=== PATIENT | female | born 1985 | race Caucasian/White ===

== ENCOUNTER → 2016-08-09 | Day surgery (SDC) | payer OTHER ==
[2016-06-30 11:55] VITALS: Ht 160 cm; Wt 91.4 kg
[2016-07-26 12:45] LABS: BASO % 0.3 %; BASO ABS # 0.03 K/uL (0-0.2); COMPLETE YES; EOS % 4.5 %; HEMATOCRIT 39.8 % (37-47); IG% 0.3 %; LYMPH % 25.8 %; LYMPH ABS # 2.36 K/uL (1.2-3.4); MEAN CELL VOLUME 91.3 fL (80-100); MEAN CORPUSCULAR HEMOGLOBIN 30.7 pg (25-34); MEAN CORPUSCULAR HGB CONC 33.7 g/dl (32-36); MEAN PLATELET VOLUME 11.2 fL (7.4-10.4); MONO % 7.8 %; NEUT % 61.3 %; PLATELET COUNT 293 K/uL (130-400); RED BLOOD COUNT 4.36 M/uL (4.2-5.4); WHITE BLOOD COUNT 9.14 K/uL (4.8-10.8)
--- NOTE | 2016-08-04 12:48 | HISTORY & PHYSICAL EXAMINATION ---
DATE OF ADMISSION: 08/09/2016 PREOPERATIVE DIAGNOSIS: Desires permanent surgical sterilization. HISTORY: The patient is a 31-year-old white female, 2, para 2, who desires tubal sterilization. Her kids are older. She was 98% sure at the time of her last section and is now 100% sure. She is using the NuvaRing now but does not like the way it fits in her vagina. She had an IUD but did not feel comfortable with it in. She is ready and interested in laparoscopic tubal sterilization. PAST MEDICAL HISTORY: She has polycystic ovarian syndrome and obesity, but otherwise healthy. Denies thyroid disease, asthma, heart disease, heart murmur, diabetes, kidney or liver problems. SURGICAL HISTORY: Includes sections, hip surgery. FAMILY HISTORY: Significant for mother with a brain tumor and hypertension and father with diabetes mellitus. SOCIAL HISTORY: The patient is currently . She denies smoking. She rarely uses alcohol. CURRENT MEDICATIONS: Include Ativan 0.5 mg as needed, Bentyl 20 mg as needed, Effexor XR 150 mg, and NuvaRing. ALLERGIES: TO BACTRIM AND SULFA DRUGS. PHYSICAL EXAMINATION: GENERAL: This is a well-developed, well-nourished white female in no acute distress. VITAL SIGNS: Weight 201.1 pounds, height 5 feet 3.5 inches, blood pressure 124/76. NECK: Supple without thyromegaly or lymphadenopathy. CHEST: Clear to auscultation bilaterally. CARDIOVASCULAR: Regular rate and rhythm without murmurs, gallops or rubs. BACK: Without costovertebral angle tenderness. EXTREMITIES: Benign. PELVIC: Deferred. REVIEW OF SYSTEMS: Negative. ASSESSMENT: This is a patient who desires laparoscopic tubal sterilization. She declines other long-term reversible forms of control. The risks of surgery were discussed with the patient including the risks of anesthesia, bleeding requiring transfusion, infection, poor wound healing, damage to surrounding structures with need for further surgery, hospitalization or intervention. The other risks of any surgery were discussed including heart attack, blood clot, stroke, . Discussed regret and risks of ectopic. Discussed the possibility of vasectomy and Essure procedure. PLAN: To proceed with laparoscopic tubal sterilization on 08/09/2016.
[~2016-08-09] VITALS: Ht 160 cm; Wt 91.4 kg
[~2016-08-09] MED LIST: ATROPINE SULFATE 0.1 MG/ML 5ML SYR IV PRN; BUPIVACAINE 0.5 % 5 MG/1 ML PF 10ML VIAL ONE; CHECK SCOPOLAMINE PATCH PLACEMENT SCH; DEXAMETHASONE SOD INJ 4 MG/ML VIAL ONE; DICY20TA35 PO; EpHEDrine SULFATE 50MG/5ML SYR ONE; EpHEDrine SULFATE INJ 50 MG/ML AMP IV PRN; FENTANYL CITRATE INJ 50 MCG/1 ML 2 ML VIAL ONE; GLYCOPYRROLATE INJ 0.2 MG/ML VIAL ONE; HYDROmorphone INJ 1 MG/ML SYR IV PRN; IBUPROFEN 200 MG TAB ONE; IBUPROFEN 600 MG TAB PO PRN; KETOROLAC TROMETHAMINE 30 MG/ML VIAL IV. PRN; KETOROLAC TROMETHAMINE 30 MG/ML VIAL ONE; LACTATED RINGER'S 1000ML 1,000 ML IV SCH; LIDOCAINE HCL 2% 2 ML VIAL (20MG/ML) ONE; LORA-741 PO; MIDAZOLAM HCL 1 MG/ML 2ML VIAL ONE; MoRPHine SULFATE 2 MG/ML CARP IV PRN; MoRPHine SULFATE 4 MG/ML 1 ML CARP\\VIAL IV PRN; NEOSTIGMINE METHYLSULFATE 5 MG/5 ML SYR ONE; NUVVR VAGRING; ONDANSETRON INJ 2 MG/ML 2 ML VIAL IV PRN; ONDANSETRON INJ 2 MG/ML 2 ML VIAL ONE; OXYC-57 PO; OXYCODONE/ACETAMINOPHEN 5-325 TAB PO PRN; PROMETHAZINE HCL INJ 12.5 MG in SODIUM CHLORIDE 0.9% 50ML 50 ML IV PRN; PROPOFOL IV EMULSION 10 MG/ML 20 ML VIAL IV ONE; SCOPOLAMINE 1.5 MG TDSY TD ONE; SCOPOLAMINE 1.5 MG TDSY TD SCH; SODIUM CHLORIDE 0.9% 1000ML 1,000 ML IV SCH; VENL150C PO
--- NOTE | 2016-08-09 07:03 | History & Physical Bridge - [place] ---
H&P Re-Evaluation Bridge Note: I have examined the patient, reviewed the History & Physical and in the interval since the performance of the History & Physical I have noted the following changes of clinical significance: No changes noted
--- NOTE | 2016-08-09 08:05 | [facility] Post Operative Brief Note ---
Immediate Operative Summary Operative Date Aug 09, 2016. Pre-Operative Diagnosis Desires Sterilization Post-Operative Diagnosis same Procedure(s) Performed Laparoscopic Tubal Sterilization Surgeon Dr. Tierra Szymanski Director Online Marketing Surgeon(s) 0 Estimated Blood Loss 5CC Findings nl utx, tubes and ovaries. adhesion of the omentum to the anterior abdominal wall. Specimens none Drains none Anesthesia gett Complication(s) None Disposition Recovery Room / PACU
--- NOTE | 2016-08-09 08:07 | Discharge Instructions ---
Discharge Instructions Date of Service Aug 09, 2016. Visit Reason for Visit: Desires Sterilization Discharge Discharge Diagnosis / Problem: s/p laproscopic tubal sterilization Discharge Goals Goal(s): Specific goals Activity Recommendations Activity Limitations: per Instructions/Follow-up section Anesthesia . Post Anesthesia Instructions: If you have had General Anesthesia or IV Sedation: * Do not drive today. * Resume driving when surgeon permits. * Do not make important decisions or sign legal documents today. * Call surgeon for: 1. Temperature elevations greater than 101 degrees F. 2. Uncontrollable pain. 3. Excessive bleeding. 4. Persistent nausea and vomiting. 5. Medication intolerance (nausea, vomiting or rash). * For nausea and vomiting use only clear liquids such as: tea, soda, bouillon until nausea subsides, then gradually increase diet as tolerated. * If you have any concerns or questions, call your surgeon's office. If physician is unavailable and it is an emergency, call 911 or go to the nearest emergency room. . Instructions / Follow-Up Instructions / Follow-Up ACTIVITY RECOMMENDATIONS: * Rest the first 2-3 days. You should be back to your normal activity levels by day 3. * No heavy lifting for 2 weeks. * No intercourse, tampons or douching for 1-2 weeks. * You may shower the next day. * Do not drive anytime that you are taking narcotic pain medicines. RETURN TO SCHOOL/WORK: * May return to school or work after 2-3 days. DIET: Nausea may occur in the immediate post-operative period. If so, take clear liquids such as tea, bouillon, apple juice until all nausea has subsided, then resume usual diet. MEDICATIONS: Resume previous medications unless instructed otherwise by your surgeon. Ibuprofen 200mg 2-3 tablets every 4-6 hours as needed -- OR -- Aleve 2 tablets every 8-12 hours as needed for post-operative discomfort Medications are over the counter. Tylenol may be used if above medications are contraindicated or not preferred. Medication should be taken with food or milk. Do not take on an empty stomach. SPECIAL CARE INSTRUCTIONS: * Check temperature twice daily for one week. report any elevation over 101 degrees. * You may experience some vagina spotting and/or bleeding. This is normal for 1 -2 weeks and should not be heavier than a normal period. If it is unusual in amount, call your physician. * Post-operative discomfort may consist of a sore throat, a "bloated" feeling and pain in the shoulders. these are normal symptoms, which usually only last for 2-3 days. * Remove band-aids tomorrow and shower. There is no need to replace band-aids unless there is drainage or discomfort. FOLLOW UP VISIT: Call your doctor's office for a post-operative 2 week visit if not already scheduled. Diet Recommendations Recommended Home Diet: no limitations, resume previous diet Procedures Procedures Performed: Laparoscopic Tubal Sterilization Pending Studies Studies pending at discharge: no Medical Emergencies . Who to Call and When: Medical Emergencies: If at any time you feel your situation is an emergency, please call 911 immediately. . Non-Emergent Contact Non-Emergency issues call your: Absorption And Adsorption Engineer . . "Provider Documentation" section prepared by Elise Szymanski. . [place] Drug Monitoring Program Search Results: patient reviewed within database, no issues identified
[2016-08-09] MEDS: FENTANYL CITRATE INJ 50 MCG/1 ML 2 ML VIAL IV PRN ×2 (08:36→08:41)
[2016-08-09 09:20] VITALS: TEMP 36.8
--- NOTE | 2016-08-09 09:33 | Anesthesia Progress Nt - [facility] ---
Anesthesia Post Op Note Date & Time Aug 09, 2016 at 09:33 Vital Signs Pain Intensity: 4.0 Vital Signs Past 12 Hours Date Time Temp Pulse Resp B/P Pulse Ox O2 Delivery O2 Flow Rate FiO2 08/09/16 09:03 95 97 08/09/16 09:03 95 08/09/16 09:00 126/90 08/09/16 08:58 88 22 99 08/09/16 08:58 90 22 08/09/16 08:55 119/90 08/09/16 08:53 80 13 98 08/09/16 08:53 81 13 08/09/16 08:50 115/84 08/09/16 08:48 90 14 100 08/09/16 08:48 91 14 08/09/16 08:46 36.8 92 16 125/96 100 Room Air 08/09/16 08:45 125/96 08/09/16 08:43 69 18 08/09/16 08:43 64 18 100 08/09/16 08:42 77 16 100 08/09/16 08:42 78 16 08/09/16 08:40 122/90 08/09/16 08:37 84 22 08/09/16 08:37 86 22 100 08/09/16 08:35 138/106 08/09/16 08:32 85 16 08/09/16 08:32 86 16 100 08/09/16 08:30 127/93 08/09/16 08:27 87 16 100 08/09/16 08:27 85 16 08/09/16 08:25 105/81 08/09/16 08:22 65 21 08/09/16 08:22 64 21 100 08/09/16 08:21 65 19 100 08/09/16 08:21 64 19 08/09/16 08:20 105/73 08/09/16 08:16 62 21 08/09/16 08:16 62 21 100 08/09/16 08:15 103/68 08/09/16 08:12 110/66 08/09/16 08:11 36.3 78 12 110/66 98 Diffusion Mask 6 08/09/16 08:11 65 98 08/09/16 08:11 65 08/09/16 06:36 36.8 82 16 161/99 98 Room Air Notes Mental Status: alert / awake / arousable, participated in evaluation Pt Amnestic to Procedure: Yes Nausea / Vomiting: adequately controlled Pain: adequately controlled Airway Patency, RR, SpO2: stable & adequate BP & HR: stable & adequate Hydration State: stable & adequate Anesthetic Complications: no major complications apparent
[2016-08-09 09:43] VITALS: BP 146/93; PULSE 96; O2SAT 97
--- NOTE | 2016-08-09 10:11 | OPERATIVE REPORT ---
DATE OF OPERATION: 08/09/2016 PREOPERATIVE DIAGNOSES: Desires permanent surgical sterilization. POSTOPERATIVE DIAGNOSIS: Same. PROCEDURE: Laparoscopic tubal sterilization. SURGEON: Dr. Szymanski. ANESTHESIA: General per endotracheal tube. ESTIMATED BLOOD LOSS: 5 mL. FLUIDS: 400 mL of IV fluid. URINE OUTPUT: Approximately 200 mL of clear yellow urine drained from the bladder at the end of the procedure. INDICATIONS: The patient is a 31-year-old 2, para 2 with 2 previous sections, desires permanent surgical sterilization. FINDINGS: Uterus, tubes, and ovaries were normal in size and shape. There was an omental adhesion to the anterior abdominal wall. COMPLICATIONS: None. DRAINS: None. DISPOSITION: To recovery room in stable condition. OPERATION AND FINDINGS: PROCEDURE: The patient was taken to the operating room where she was identified verbally and by bracelet. She was placed in dorsal supine position where general anesthesia was induced without difficulty. She was then placed in dorsal lithotomy position in [facility] stirrups and prepped and draped in normal sterile fashion. The patient time-out was held identifying correct patient, procedure and positioning. An exam under anesthesia was performed with a small anteverted uterus, no appreciable adnexal masses. A Magallon catheter was placed in the bladder. A weighted speculum was placed in the posterior vagina. The anterior lip of the cervix was grasped with single tooth tenaculum and a Jalloh uterine manipulator was placed into the cervix and the speculum was removed, gloves were then changed. Attention was then turned to the abdomen where an infraumbilical incision was made with the knife. This was stretched with a snap. Three attempts [address] the Veress needle resulted in opening pressures greater than 10 mmHg. Therefore, we converted to open laparoscopy. The incision was enlarged slightly with the knife. We dissected down to the fascia. The fascia was entered with scissors. It was sutured with 0 Vicryl and then we grasped the peritoneum bilaterally and entered. The Sai trocar was placed through this. The patient was placed into steep Trendelenburg and the abdomen was insufflated with carbon dioxide gas. There was omental adhesion noted tightly to the left anterior abdominal wall but we were able to get good visualization around this so that the omental adhesion was not disturbed. First on the right and then on the left bipolar cautery was used to cauterize a 2 cm length of the tube and then the procedure was terminated. The trocars were removed. The gas was released from the abdomen. The 0 Vicryl sutures were used to reapproximate the fascia in the infraumbilical incision. The infraumbilical incision was irrigated and all skin incisions were closed with 4-0 Vicryl in a subcuticular fashion. The incisions were infiltrated with 0.5% Marcaine and the incisions were then treated with Dermabond. The instruments were removed from the vagina and hemostasis was noted to be excellent. All sponge, lap and needle counts were correct x2. The patient tolerated the procedure well and was taken to recovery room in stable condition. I attest to the content of the Intraoperative Record and any orders documented therein. Any exceptions are noted below. R[place]D
== END | disposition home or self-care (01) ==
LOC: X.SURG 06:13
PROVIDERS: ATTEND Obstetrics & Gynecology
DX: Z30.2 Encounter for sterilization (principal); K66.0 Peritoneal adhesions (postprocedural) (postinfection); E28.2 Polycystic ovarian syndrome; E66.9 Obesity, unspecified; Z79.899 Other long term (current) drug therapy

== ENCOUNTER → 2017-02-23 | Outpatient (CLI) | payer OTHER ==
[~2017-02-23] MED LIST changes: -ATROPINE SULFATE 0.1 MG/ML 5ML SYR IV PRN; -BUPIVACAINE 0.5 % 5 MG/1 ML PF 10ML VIAL ONE; -CHECK SCOPOLAMINE PATCH PLACEMENT SCH; -DEXAMETHASONE SOD INJ 4 MG/ML VIAL ONE; -EpHEDrine SULFATE 50MG/5ML SYR ONE; -EpHEDrine SULFATE INJ 50 MG/ML AMP IV PRN; -FENTANYL CITRATE INJ 50 MCG/1 ML 2 ML VIAL ONE; -GLYCOPYRROLATE INJ 0.2 MG/ML VIAL ONE; -HYDROmorphone INJ 1 MG/ML SYR IV PRN; -IBUPROFEN 200 MG TAB ONE; -IBUPROFEN 600 MG TAB PO PRN; -KETOROLAC TROMETHAMINE 30 MG/ML VIAL IV. PRN; -KETOROLAC TROMETHAMINE 30 MG/ML VIAL ONE; -LACTATED RINGER'S 1000ML 1,000 ML IV SCH; -LIDOCAINE HCL 2% 2 ML VIAL (20MG/ML) ONE; -MIDAZOLAM HCL 1 MG/ML 2ML VIAL ONE; -MoRPHine SULFATE 2 MG/ML CARP IV PRN; -MoRPHine SULFATE 4 MG/ML 1 ML CARP\\VIAL IV PRN; -NEOSTIGMINE METHYLSULFATE 5 MG/5 ML SYR ONE; -NUVVR VAGRING; -ONDANSETRON INJ 2 MG/ML 2 ML VIAL IV PRN; -ONDANSETRON INJ 2 MG/ML 2 ML VIAL ONE; -OXYC-57 PO; -OXYCODONE/ACETAMINOPHEN 5-325 TAB PO PRN; -PROMETHAZINE HCL INJ 12.5 MG in SODIUM CHLORIDE 0.9% 50ML 50 ML IV PRN; -PROPOFOL IV EMULSION 10 MG/ML 20 ML VIAL IV ONE; -SCOPOLAMINE 1.5 MG TDSY TD ONE; -SCOPOLAMINE 1.5 MG TDSY TD SCH; -SODIUM CHLORIDE 0.9% 1000ML 1,000 ML IV SCH
== END | disposition home or self-care (01) ==
LOC: C.PAPS 14:08
PROVIDERS: ATTEND Obstetrics & Gynecology
DX: Z12.4 Encounter for screening for malignant neoplasm of cervix (principal); E28.2 Polycystic ovarian syndrome

== ENCOUNTER 2018-08-25 12:20 | Observation (INO) ==
--- NOTE | 2018-08-25 12:33 | Emergency Department Note ---
History of Present Illness General Chief complaint: Abdominal Pain Stated complaint: ABD PAIN Time Seen by Provider: 08/25/18 12:29 History of Present Illness Maximum Pain Intensity: 7 This is a 33-year-old female that presents to the emergency department via private vehicle with complaints of "abdominal pain". The patient notes that she has been experiencing epigastric and left upper quadrant abdominal pain that began first back in July. She notes that she was evaluated here in the emergency department and then followed up with the family doctor. She also had an ultrasound and HIDA scan performed. She notes that the function is around 99 which she notes is overactive and is scheduled to have the gallbladder taken out September 14 of this month. She notes this will be with Dr. Boles. She states that she was doing well until last night she went to breakfast and had a kilgore omelette and then shortly thereafter began with epigastric abdominal pain that went to the left upper quadrant that radiates to the back. She notes that it is a cramp-like sensation. It is a 7/10. She states that typically this lasts for a few hours but now has been constant for over 24 hours now. She reached out to the surgeon's office and was recommended to come here for further evaluation and management. She notes a history of tubal ligation and hysterectomy but no other abdominal surgeries. She denies any active medical problems. Home Medications Home Medications Medication Instructions Recorded Confirmed Type ondansetron HCl [Zofran] 4 mg PO TID PRN 08/24/18 08/25/18 History propranolol 10 mg PO TID PRN 08/25/18 08/25/18 History Allergies Allergy/AdvReac Type Severity Reaction Status Date / Time Bactrim AdvReac Unknown nausea and Verified 08/09/16 06:59 vomiting sulfamethoxazole AdvReac Unknown nausea and Verified 08/25/18 12:53 vomiting trimethoprim AdvReac Unknown nausea and Verified 08/25/18 12:53 vomiting Past Med/Surg History Medical History Anxiety IBS (irritable bowel syndrome) Obesity PCOS (polycystic ovarian syndrome) Surgical History History of section History of hip surgery LEFT CHILD 2/2 INFECTION History of tooth extraction History of tubal ligation Social History Preferred Language: Kazakh Communication Ability: Effective Beliefs That Will Affect Care: None Current Living Situation: Spouse Feels Safe at Home: Yes Smoking Status: Never smoker Second Hand Exposure: No Hx Alcohol Use: Yes Alcohol type: wine Hx Substance Use: No Review of Systems A total of 10 systems reviewed and were otherwise negative Physical Exam Vital Signs Vital Signs - 24 hr 08/25/18 12:27 08/25/18 13:16 08/25/18 14:09 Temperature 37.0 C Temperature Source Oral Sepsis Recent Fever Within 48 Hours No Sepsis New/Unexplained Change in Mental Status No Sepsis Action Taken by Nursing No Action Required Pulse Rate 72 Pulse Rate [Left Finger] 63 64 Pulse Rate [Right Finger] Pulse Rhythm Regular Pulse Rhythm [Left Finger] Regular Pulse Rhythm [Right Finger] Pulse Strength Normal Respiratory Rate 20 20 18 Respiratory Effort / Characteristics Non-Labored Spontaneous Non-Labored Non-Labored Respiratory Depth Normal Normal Normal Respiratory Pattern Regular Regular Regular Blood Pressure 134/78 Blood Pressure [Left Arm] 114/90 132/91 Blood Pressure Mean 96 Blood Pressure Mean [Left Arm] 98 104 Blood Pressure Position Sitting Blood Pressure Position [Left Arm] Pulse Oximetry 99 98 98 Oxygen Delivery Method Room Air Room Air Room Air 08/25/18 15:22 08/25/18 16:52 08/25/18 17:01 Temperature Temperature Source Sepsis Recent Fever Within 48 Hours Sepsis New/Unexplained Change in Mental Status Sepsis Action Taken by Nursing Pulse Rate 71 Pulse Rate [Left Finger] 72 76 Pulse Rate [Right Finger] Pulse Rhythm Pulse Rhythm [Left Finger] Regular Pulse Rhythm [Right Finger] Pulse Strength Respiratory Rate 20 20 18 Respiratory Effort / Characteristics Non-Labored Non-Labored Respiratory Depth Normal Normal Respiratory Pattern Regular Regular Blood Pressure 133/91 Blood Pressure [Left Arm] 121/93 133/91 Blood Pressure Mean Blood Pressure Mean [Left Arm] 102 105 Blood Pressure Position Blood Pressure Position [Left Arm] Pulse Oximetry 97 99 99 Oxygen Delivery Method Room Air Room Air Room Air 08/25/18 17:13 Temperature 36.9 C Temperature Source Oral Sepsis Recent Fever Within 48 Hours Sepsis New/Unexplained Change in Mental Status Sepsis Action Taken by Nursing Pulse Rate Pulse Rate [Left Finger] Pulse Rate [Right Finger] 77 Pulse Rhythm Pulse Rhythm [Left Finger] Pulse Rhythm [Right Finger] Regular Pulse Strength Respiratory Rate 16 Respiratory Effort / Characteristics Non-Labored Spontaneous Respiratory Depth Normal Respiratory Pattern Regular Blood Pressure Blood Pressure [Left Arm] 129/87 Blood Pressure Mean Blood Pressure Mean [Left Arm] 101 Blood Pressure Position Blood Pressure Position [Left Arm] Semi-fowlers Pulse Oximetry 99 Oxygen Delivery Method Room Air VITAL SIGNS - Vital signs and nursing notes were reviewed. Stable and afebrile. GENERAL - 33-year-old female appearing her stated age who is in no acute distress. Communicates well with provider and answers questions appropriately. SKIN - Without rashes. HEAD - NC/AT. EYES - PERRL with EOMI bilaterally. Sclera anicteric. EARS - No deformities of external structures noted on gross examination bilaterally. NOSE - Midline and without cyanosis. No epistaxis or purulent drainage noted. MOUTH/OROPHARYNX - Without perioral cyanosis. NECK - Neck with FROM. Supple to palpation. No lymphadenopathy noted. No nuchal rigidity. LUNGS - Chest wall symmetric without accessory muscle use, intercostals retractions, or central cyanosis. Normal vesicular breath sounds CTA B/L. No wh eezes, rales, or rhonchi appreciated. CARDIAC - RRR with S1/S2. No murmur, rubs, or gallops appreciated. ABDOMEN - Abdominal contour normal without pulsations or visible masses. BS normoactive all four quadrants. I am unable to reproduce epigastric pain with palpation. No tenderness, palpable masses, hepatosplenomegaly, or ascites noted. EXTREMITIES - No clubbing or peripheral cyanosis. No pretibial edema present. +5/5 strength noted in UE/LE bilaterally. NEUROLOGIC - Cranial nerves II through XII grossly intact. PSYCH - A&O, and cooperates fully with examiner. Pt is very pleasant and int eracts well with examiner. Course Administered Medications Discontinued Medications Bupivacaine HCl (Marcaine 0.5% Mpf) Confirm Administered Dose 30 ml .ROUTE .STK- MED ONE Stop: 08/25/18 17:29 Last Admin: 08/25/18 18:17 Dose: 15 ml Documented by: [id number] Sodium Chloride (Nss 1000ml) 1,000 mls @ 999 mls/hr IV .Q1H1M GHAZALA Stop: 08/25/18 13:45 Last Infusion: 08/25/18 14:00 Dose: 0 mls/hr Documented by: [id number] Admin: 08/25/18 12:58 Dose: 999 mls/hr Documented by: [id number] Cefoxitin Sodium 2,000 mg/ (Dextrose) 60 mls @ 100 mls/hr IV NOW STA Stop: 08/25/18 17:29 Last Admin: 08/25/18 17:23 Dose: 100 mls/hr Documented by: [id number] Ketorolac Tromethamine (Toradol) 30 mg IV NOW STA Stop: 08/25/18 12:41 Last Admin: 08/25/18 13:09 Dose: 30 mg Documented by: [id number] Morphine Sulfate (Morphine Sulfate) 4 mg IV NOW STA Stop: 08/25/18 14:52 Last Admin: 08/25/18 15:17 Dose: 4 mg Documented by: [id number] Ondansetron HCl (Zofran) 4 mg IV NOW STA Stop: 08/25/18 12:41 Last Admin: 08/25/18 13:09 Dose: 4 mg Documented by: [id number] Medical Decision Making Laboratory Data Result diagrams: 08/25/18 12:55 08/25/18 12:55 Lab Results 08/25/18 08/25/18 08/25/18 Range/Units 12:55 12:55 12:55 WBC 10.36 (4.8-10.8) K/uL RBC 4.81 (4.2-5.4) M/uL Hgb 14.5 (12.0-16.0) g/dL Hct 43.0 (37-47) % MCV 89.4 (80-100) fL MCH 30.1 (25-34) pg MCHC 33.7 (32-36) g/dL RDW Std Deviation 41.4 (36.4-46.3) fL RDW Coeff of Katey 12.8 (11.5-14.5) % Plt Count 248 (130-400) K/uL MPV 10.5 H (7.4-10.4) fL Immature Gran % (Auto) 0.2 % Neut % (Auto) 62.4 % Lymph % (Auto) 23.2 % [place] % (Auto) 6.4 % Eos % (Auto) 7.6 % Baso % (Auto) 0.2 % Immature Gran # (Auto) 0.02 (0.00-0.02) K/uL Neut # (Auto) 6.47 (1.4-6.5) K/uL Lymph # (Auto) 2.40 (1.2-3.4) K/uL [place] # (Auto) 0.66 H (0.11-0.59) K/uL Eos # (Auto) 0.79 H (0-0.5) K/uL Baso # (Auto) 0.02 (0-0.2) K/uL Sodium 139 (136-145) mmol/L Potassium 3.8 (3.5-5.1) mmol/L Chloride 109 H (98-107) mmol/L Carbon Dioxide 23 (21-32) mmol/L Anion Gap 7.0 (3-11) BUN 11 (7-18) mg/dl Creatinine 0.68 (0.6-1.2) mg/dl Est Cr Clr Drug Dosing 121.6 ml/min Est GFR ( Amer) 131.3 Est GFR (Non-Af Amer) 113.3 BUN/Creatinine Ratio 15.6 (10-20) Glucose 87 (70-99) mg/dl Calcium 8.9 (8.5-10.1) mg/dl Magnesium 2.0 (1.8-2.4) mg/dl Total Bilirubin 0.5 (0.2-1) mg/dl AST 11 L (15-37) U/L ALT 18 (12-78) U/L Alkaline Phosphatase 94 (45-117) U/L Total Protein 7.1 (6.4-8.2) gm/dl Albumin 3.7 (3.4-5.0) gm/dl Globulin 3.4 (2.5-4.0) gm/dl Albumin/Globulin Ratio 1.1 (0.9-2) Lipase 84 (73-393) U/L Urine Color Urine Appearance (Clear) Urine pH (4.5-7.5) Ur Specific [place] (1.000-1.030) Urine Protein (Negative) Urine Glucose (UA) (Negative) Urine Ketones (Negative) Urine Blood (Negative) Urine Nitrite (Negative) Urine Bilirubin (Negative) Urine Urobilinogen (Negative) Ur Leukocyte Esterase (Negative) Urine WBC (Auto) (0-5) /hpf Urine RBC (Auto) (0-4) /hpf U Hyaline Cast (Auto) (0-5) /lpf U Epithel Cells (Auto) (0-5) /lpf Urine Bacteria (Auto) (Negative) POC Ur Test NEG (NEG) 08/25/18 Range/Units 12:55 WBC (4.8-10.8) K/uL RBC (4.2-5.4) M/uL Hgb (12.0-16.0) g/dL Hct (37-47) % MCV (80-100) fL MCH (25-34) pg MCHC (32-36) g/dL RDW Std Deviation (36.4-46.3) fL RDW Coeff of Katey (11.5-14.5) % Plt Count (130-400) K/uL MPV (7.4-10.4) fL Immature Gran % (Auto) % Neut % (Auto) % Lymph % (Auto) % [place] % (Auto) % Eos % (Auto) % Baso % (Auto) % Immature Gran # (Auto) (0.00-0.02) K/uL Neut # (Auto) (1.4-6.5) K/uL Lymph # (Auto) (1.2-3.4) K/uL [place] # (Auto) (0.11-0.59) K/uL Eos # (Auto) (0-0.5) K/uL Baso # (Auto) (0-0.2) K/uL Sodium (136-145) mmol/L Potassium (3.5-5.1) mmol/L Chloride (98-107) mmol/L Carbon Dioxide (21-32) mmol/L Anion Gap (3-11) BUN (7-18) mg/dl Creatinine (0.6-1.2) mg/dl Est Cr Clr Drug Dosing ml/min Est GFR ( Amer) Est GFR (Non-Af Amer) BUN/Creatinine Ratio (10-20) Glucose (70-99) mg/dl Calcium (8.5-10.1) mg/dl Magnesium (1.8-2.4) mg/dl Total Bilirubin (0.2-1) mg/dl AST (15-37) U/L ALT (12-78) U/L Alkaline Phosphatase (45-117) U/L Total Protein (6.4-8.2) gm/dl Albumin (3.4-5.0) gm/dl Globulin (2.5-4.0) gm/dl Albumin/Globulin Ratio (0.9-2) Lipase (73-393) U/L Urine Color Yellow Urine Appearance Cloudy A (Clear) Urine pH 6.0 (4.5-7.5) Ur Specific [place] 1.023 (1.000-1.030) Urine Protein Negative (Negative) Urine Glucose (UA) Negative (Negative) Urine Ketones Negative (Negative) Urine Blood Negative (Negative) Urine Nitrite Negative (Negative) Urine Bilirubin Negative (Negative) Urine Urobilinogen Negative (Negative) Ur Leukocyte Esterase Negative (Negative) Urine WBC (Auto) 1-5 (0-5) /hpf Urine RBC (Auto) 10-30 H (0-4) /hpf U Hyaline Cast (Auto) 1-5 (0-5) /lpf U Epithel Cells (Auto) >30 H (0-5) /lpf Urine Bacteria (Auto) 2+ H (Negative) POC Ur Test (NEG) MDM Narrative Patient was seen and evaluated as above in room B6. Review was performed of nursing notes and vital signs. After obtaining a thorough history and physical examination the above work up was performed. She presents to us today with abdominal pain. She is scheduled to have her gallbladder removed at the end of this month. Pain is in the epigastric region radiating to the left upper quadrant. She notes that she had a HIDA scan which shows that she has what she describes as an over functioning gallbladder and is scheduled to have this removed at the end of the month. She was doing well and then yesterday had a kilgore omlet for breakfast and then began near immediately with epigastric and left upper quadrant abdominal pain. This is the same type of pain she had p reviously. On my exam she has no tenderness over the gallbladder and liver region. I really am not able to reproduce the epigastric pain and offered her chest x-ray, EKG and troponin as well as abdominal work-up and she respectfully declined. I did order a gallbladder ultrasound, IV was placed and she was given Toradol, Zofran and fluids. Pain persisted and she was given morphine. CBC reveals no leukocytosis or concerning anemia. No emergent metabolic process. There is no LFT or bilirubin abnormality. Urinalysis reveals what I believe to be a contaminated sample. UPT negative. Because the patient had persistence of her pain that was still 7 or 8 despite Toradol, and morphine I did call the on- call general surgery team, and spoke with Laura Moore PA-C. She then spoke with Dr. Rivera who came to evaluate the patient. She will be taken to the operating room for lap scopic cholecystectomy. I believe this is reasonable. Please refer to further documentation regarding her stay. Case was discussed with the attending physician. In the evaluation and treatment of this patient, the following differential diagnoses were considered: ASC, [place], Pneumonia, GERD, Cholecystitis, Ascending Cholangitis, Cholydocholithiasis, Bowel Obstruction, PE, Amongst Others. Impression & Plan Abdominal pain, epigastric Discharge Plan Visit Data *Final* Discharge Date/Time: 08/25/18 17:01 Chief Complaint: Abdominal Pain Stated Complaint: ABD PAIN ED Provider: Lyric Valenzuela ED Midlevel Provider: Lebron Myers Discharge Problem: Abdominal pain, epigastric Patient Disposition: Admitted As Inpatient Condition: Good Discharge Instructions Interventions: ED Discharge Assessment Last Done: 08/25/18 17:01
[2018-08-25] MEDS ORDERED: ONDANSETRON INJ 2 MG/ML 2 ML VIAL IV STA (12:40)
[2018-08-25] MEDS ORDERED: KETOROLAC 30 MG/ML VIAL IV STA (12:40)
[2018-08-25] MEDS ORDERED: SODIUM CHLORIDE 0.9% 1000ML 1,000 ML IV SCH ×2 (12:45→19:59)
[2018-08-25 13:05] LABS: Basophils # (auto) 0.02 K/uL (0-0.2); Basophils % (auto) 0.2 %; Eosinophils # (auto) 0.79 K/uL (0-0.5); Eosinophils % (auto) 7.6 %; Hemoglobin 14.5 g/dL (12.0-16.0); Immature Granulocytes # (auto) 0.02 K/uL (0.00-0.02); Immature Granulocytes % (auto) 0.2 %; Lymphocytes % (auto) 23.2 %; Mean Corpuscular Hgb Conc 33.7 g/dL (32-36); Mean Corpuscular Volume 89.4 fL (80-100); Mean Platelet Volume 10.5 fL (7.4-10.4); Monocytes # (auto) 0.66 K/uL (0.11-0.59); Monocytes % (auto) 6.4 %; Neutrophils # (auto) 6.47 K/uL (1.4-6.5); Neutrophils % (auto) 62.4 %; Platelet Count 248 K/uL (130-400); RDW Coefficient of Variation 12.8 % (11.5-14.5); RDW Standard Deviation 41.4 fL (36.4-46.3); Red Blood Count 4.81 M/uL (4.2-5.4); White Blood Count 10.36 K/uL (4.8-10.8)
[2018-08-25 13:25] LABS: Albumin Level 3.7 gm/dl (3.4-5.0); Appearance Urine Cloudy (Clear); BUN Creatinine Ratio 15.6 (10-20); Bacteria Urine Automated 2+ (Negative); Bilirubin Urine Negative (Negative); Calcium 8.9 mg/dl (8.5-10.1); Color Urine Yellow; Creatinine Clr Calc Pharmacy 121.6 ml/min; Epithelial Cell Urine Auto >30 /lpf (0-5); Est GFR (African American) 131.3; Est GFR (Non-African American) 113.3; Glucose Urine UA Negative (Negative); Ketones Urine Negative (Negative); Leukocyte Esterase Urine Negative (Negative); Nitrite Urine Negative (Negative); Potassium 3.8 mmol/L (3.5-5.1); Protein Urine Negative (Negative); Specific Gravity Urine 1.023 (1.000-1.030); Urobilinogen Urine Negative (Negative)
[2018-08-25 13:27] LABS: Albumin Globulin Ratio 1.1 (0.9-2); Bilirubin,Total 0.5 mg/dl (0.2-1); Globulin 3.4 gm/dl (2.5-4.0); Total Protein 7.1 gm/dl (6.4-8.2)
--- NOTE | 2018-08-25 14:15 | Ultrasound Report ---
US gallbladder HISTORY: Pain. Nausea. epigastric and LUQ pain COMPARISON: 07/27/2018. FINDINGS: Ultrasonic evaluation of the right upper quadrant demonstrates fatty infiltration of liver. Gallbladd er is currently normal. Small cholesterol polyp previously described is not identified currently. The re are no shadowing gallstones. Normal common bile duct at 5 mm. The pancreas and right kidney are unremarkable. IMPRESSION: 1. Fatty replacement of liver. 2. Otherwise negative study. Delayed Or spelling errors. Electronically signed by: Urbano Hager M.D. 08/25/2018 2:14 PM
[2018-08-25] MEDS ORDERED: MoRPHine SULFATE 4 MG/ML 1 ML CARP\\VIAL IV STA (14:51)
--- NOTE | 2018-08-25 16:52 | History & Physical Report ---
Date of Service August 25, 2018 Assessment & Plan (1) Biliary colic: I do feel the patient is experiencing biliary dyskinesia and biliary colic. I have discussed with the patient and her laparoscopic cholecystectomy possible open cholecystectomy and possible need for drain. She understands potential complications of bleeding, infection, bile and bile duct injury. She does wish to proceed. She also understands that this may not alleviate all of her symptoms. 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 She has been seen by Dr. Boles who has her scheduled for surgery in 2 to 3 weeks. This is her second time in the emergency room with prior work-up including ultrasound and HIDA scan which were normal. Ejection fraction was done which was normal the patient did have symptoms in the medication to evaluate the ejection fraction was given. She has no significant cardiopulmonary problems and is otherwise healthy Allergies Allergy/AdvReac Type Severity Reaction Status Date / Time Bactrim AdvReac Unknown nausea and Verified 08/09/16 06:59 vomiting sulfamethoxazole AdvReac Unknown nausea and Verified 08/25/18 12:53 vomiting trimethoprim AdvReac Unknown nausea and Verified 08/25/18 12:53 vomiting Home Medications Home Medications Medication Instructions Recorded Confirmed Type ondansetron HCl [Zofran] 4 mg PO TID PRN 08/24/18 08/25/18 History propranolol 10 mg PO TID PRN 08/25/18 08/25/18 History Past Med/Surg History Medical History Anxiety IBS (irritable bowel syndrome) Obesity PCOS (polycystic ovarian syndrome) Surgical History History of section History of hip surgery LEFT CHILD 2/2 INFECTION History of tooth extraction History of tubal ligation Social History Preferred Language: Slovenian Communication Ability: Effective Beliefs That Will Affect Care: None Current Living Situation: Spouse Feels Safe at Home: Yes Smoking Status: Never smoker Second Hand Exposure: No Hx Alcohol Use: Yes Alcohol type: wine Hx Substance Use: No Review of Systems All systems reviewed & are unremarkable except as noted in HPI & below Physical Exam Vital Signs (Past 24 Hours): Last Vital Signs Temp 37.0 C 08/25/18 12:27 Pulse 72 08/25/18 15:22 Resp 20 08/25/18 15:22 BP 121/93 08/25/18 15:22 Pulse Ox 97 08/25/18 15:22 HEENT exam is grossly normal. She is awake and alert. Her sclera are anicteric neck is supple. She has no evidence of respiratory distress. Her heart shows regular rate and rhythm. Her abdomen is soft he does have some epigastric tenderness to deep palpation. Her extremities are warm and well-perfused without rashes.
[2018-08-25] MEDS ORDERED: cefOXitin 2,000 MG in DEXTROSE 5% 50 ML IV STA (16:54)
[2018-08-25] MEDS ORDERED: MIDAZOLAM HCL 1 MG/ML 2ML VIAL ONE (17:08)
[2018-08-25] MEDS ORDERED: fentaNYL citrate 100 MCG/2 ML VIAL ONE (17:08)
[2018-08-25] MEDS ORDERED: LIDOCAINE HCL 2% 2 ML VIAL/AMP(20MG/ML) INFIL ONE (17:10)
[2018-08-25] MEDS ORDERED: ONDANSETRON INJ 2 MG/ML 2 ML VIAL ONE (17:10)
[2018-08-25] MEDS ORDERED: DEXAMETHASONE SOD INJ 4 MG/ML VIAL ONE (17:10)
[2018-08-25] MEDS ORDERED: PROPOFOL IV EMULSION 10 MG/ML 20 ML VIAL IV ONE (17:10)
[2018-08-25] MEDS ORDERED: ROCURONIUM BROMIDE 10 MG/ML 5 ML VIAL ONE (17:10)
[2018-08-25] MEDS ORDERED: ACETAMINOPHEN 1000 MG/100 ML IV IV ONE (17:12)
[2018-08-25] MEDS ORDERED: BUPIVACAINE 0.5 % 5 MG/1 ML MPF 30ML VIAL ONE (17:28)
[2018-08-25] MEDS ORDERED: NEOSTIGMINE METHYLSULFATE 5 MG/5 ML SYR ONE (18:01)
[2018-08-25] MEDS ORDERED: GLYCOPYRROLATE 0.2 MG/ML VIAL ONE (18:01)
[2018-08-25] MEDS ORDERED: SUGAMMADEX SODIUM 200 MG/2 ML VIAL IV ONE (18:13)
--- NOTE | 2018-08-25 18:24 | Operative Report ---
Post Operative Report Pre & Post Diagnosis Operation Date: 08/25/18 10:00 Pre-Op Diagnosis: chronic cholecystitis Post-Op Diagnosis: chronic cholecystitis adhesions Procedure Operation Date: 08/25/18 10:00 Actual Procedures p Laparoscopic Cholecystectomy - Monty Rivera MD, FACS lysis of adhesions Surgeon Monty Rivera MD, FACS [employer] nurses Estimated Blood Loss 10 Findings Consistent with Post-Op Diagnosis Specimens gallbladder Description of Procedure see dictation I attest to the content of the Intraoperative Record and any orders documented therein. Any exceptions are noted below.
[2018-08-25] MEDS ORDERED: HYDROmorphone INJ 1 MG/ML SYRINGE ONE (18:55)
[2018-08-25] MEDS: HYDROmorphone INJ 1 MG/ML SYRINGE IV PRN ×2 (18:55→19:05)
[2018-08-25] MEDS ORDERED: PROMETHAZINE HCL 12.5 MG in SODIUM CHLORIDE 0.9% 50 ML IV PRN ×2 (18:56→19:59)
[2018-08-25] MEDS ORDERED: NALOXONE HCL 0.4 MG/1 ML VIAL/CARP IV PRN (18:56)
[2018-08-25] MEDS ORDERED: FLUMAZENIL 0.1 MG/1 ML 10 ML VIAL IV PRN (18:56)
[2018-08-25] MEDS ORDERED: ATROPINE SULFATE 0.1 MG/ML 10ML SYR IV PRN (18:56)
[2018-08-25] MEDS ORDERED: LABETALOL HCL IV 5 MG/ML 20ML IV PRN (18:56)
[2018-08-25] MEDS ORDERED: ePHEDrine sulfate 50 MG/ML AMP IV PRN (18:56)
[2018-08-25] MEDS ORDERED: ONDANSETRON INJ 2 MG/ML 2 ML VIAL IV PRN ×2 (18:56→19:59)
--- NOTE | 2018-08-25 19:35 | Anesthesiology Progress Note ---
Date of Service August 25, 2018 Anesthesia Post Procedure Vital Signs Vital Signs: Temp Pulse Pulse Pulse Pulse Resp BP 08/25/18 19:25 69 17 137/91 08/25/18 19:23 66 18 133/93 08/25/18 19:20 69 16 08/25/18 19:16 69 18 134/94 08/25/18 19:12 37.3 C 08/25/18 19:11 71 20 136/94 08/25/18 19:10 68 20 08/25/18 19:06 79 19 146/95 H 08/25/18 19:05 72 14 08/25/18 19:01 72 14 144/95 H 08/25/18 18:56 80 16 151/95 H 08/25/18 18:55 79 15 08/25/18 18:53 81 15 154/96 H 08/25/18 18:51 71 12 144/107 H 08/25/18 18:50 74 13 08/25/18 18:46 74 16 144/94 H 08/25/18 18:40 79 17 153/98 H 08/25/18 18:36 78 21 08/25/18 18:35 69 22 144/95 H 08/25/18 18:34 37.5 C 79 88 21 147/102 H 08/25/18 17:13 36.9 C 77 16 08/25/18 17:01 71 18 133/91 08/25/18 16:52 76 20 08/25/18 15:22 72 20 08/25/18 14:09 64 18 08/25/18 13:16 63 20 08/25/18 12:27 37.0 C 72 20 134/78 BP Pulse Ox 08/25/18 19:25 94 08/25/18 19:23 95 08/25/18 19:20 95 08/25/18 19:16 93 08/25/18 19:12 95 08/25/18 19:11 95 08/25/18 19:10 97 08/25/18 19:06 99 08/25/18 19:05 100 08/25/18 19:01 97 08/25/18 18:56 99 08/25/18 18:55 100 08/25/18 18:53 100 08/25/18 18:51 100 08/25/18 18:50 100 08/25/18 18:46 100 05/10/19 18:40 100 08/25/18 18:36 100 08/25/18 18:35 100 08/25/18 18:34 147/102 H 100 08/25/18 17:13 129/87 99 08/25/18 17:01 99 08/25/18 16:52 133/91 99 08/25/18 15:22 121/93 97 08/25/18 14:09 132/91 98 08/25/18 13:16 114/90 98 08/25/18 12:27 99 Pain Intensity Abdomen: Pain Intensity: 4 Transfer of Care Handoff Completed per policy Notes Mental Status: alert / awake / arousable Patient Amnestic to Procedure: Yes Nausea / Vomiting: adequately controlled Pain: adequately controlled Airway Patency, RR, SpO2: stable & adequate BP & HR: stable & adequate Hydration State: stable & adequate Anesthetic Complications: no major complications apparent
[2018-08-25] MEDS ORDERED: HYDROCODONE/ACETAMOPHEN 5/325MG TAB PO PRN (19:59)
[2018-08-25] MEDS ORDERED: IBUPROFEN 600 MG TAB PO PRN (19:59)
[2018-08-25] MEDS ORDERED: ACETAMINOPHEN 325 MG TAB PO PRN (19:59)
[2018-08-25] MEDS ORDERED: PROPRANOLOL HCL 10 MG TAB PO PRN (19:59)
[2018-08-25] MEDS ORDERED: HYDROmorphone INJ 1 MG/ML SYRINGE IV PRN (19:59)
[2018-08-25] MEDS ORDERED: PROMETHAZINE HCL 25 MG in SODIUM CHLORIDE 0.9% 50 ML IV PRN (19:59)
[2018-08-25] MEDS ORDERED: HYDROmorphone INJ 0.5 MG/0.5 ML SYR IV PRN (19:59)
[2018-08-25] MEDS: HYDROCODONE/ACETAMOPHEN 5/325MG TAB PO PRN (21:22)
--- NOTE | 2018-08-26 01:31 | Operative Report ---
DATE OF OPERATION: 08/25/2018 DATE OF OPERATION: 08/25/2018 NAME OF OPERATION: Laparoscopic cholecystectomy with lysis of adhesions. PREOPERATIVE DIAGNOSIS: Biliary colic. POSTOPERATIVE DIAGNOSES: Biliary colic with chronic cholecystitis. STAFF SURGEON: Dr. Rivera. ANESTHESIA: General. PROCEDURE: The patient was brought in the operating room and placed on the operating table in supine position. Her abdomen was prepped and draped in usual fashion. An 0.5% plain Marcaine was used to anesthetize all incisions. Incision was made above the umbilicus, carrying dissection down to the fascia, placing a Veress needle producing pneumoperitoneum. A 5 mm port was placed and an 11 mm port placed at this level. Then under visualization, three 5 mm ports placed, 1 cephalad and 2 laterally, all under visualization. Gallbladder was grasped and retracted. There were adhesions to the gallbladder. These were taken down. The gallbladder was aspirated of bile to decompress the gallbladder. Dissection was carried out at the chelsey hepatis indicating chronic scar tissue and chronic cholecystitis. The cystic duct and cystic artery were dissected free, clipped and transected and the gallbladder dissected away from the liver bed in the usual fashion. After appropriate hemostasis and irrigation, the gallbladder was placed in an Endobag and removed through the umbilical site. Fascia at the umbilicus closed using 0 Vicryl suture. Skin at the umbilicus closed using interrupted 5-0 Prolene suture. The other sites closed using subcuticular 4-0 Monocryl with Steri-Strips. Dressings applied and patient transferred to recovery room in stable condition. I attest to the content of the Intraoperative Record and any orders documented therein. Any exception s are noted below.
--- NOTE | 2018-08-26 05:55 | Progress Note ---
Date of Service August 26, 2018 Assessment & Plan (1) Chronic cholecystitis: progressing well possible d/c home later Subjective doing well- jeff some po pain controlled Physical Exam Physical Exam: abd soft, dressings intact Results & Data Vital Signs (Past 12 Hours) Vital Signs Temp Pulse Pulse Pulse Resp BP BP 08/26/18 03:10 36.8 C 84 16 130/80 08/25/18 23:25 36.9 C 97 H 16 141/90 H 08/25/18 22:36 36.8 C 87 14 145/88 H 08/25/18 21:09 37 C 82 14 08/25/18 20:08 36.8 C 70 16 134/90 08/25/18 19:59 36.8 C 70 16 134/90 08/25/18 19:41 72 19 130/87 08/25/18 19:40 76 19 08/25/18 19:37 37.3 C 08/25/18 19:36 75 18 139/92 08/25/18 19:35 70 22 08/25/18 19:32 68 17 134/90 08/25/18 19:31 71 20 08/25/18 19:27 79 18 08/25/18 19:25 69 17 137/91 08/25/18 19:23 66 18 133/93 08/25/18 19:20 69 16 08/25/18 19:16 69 18 134/94 08/25/18 19:12 37.3 C 08/25/18 19:11 71 20 136/94 08/25/18 19:10 68 20 08/25/18 19:06 79 19 146/95 H 08/25/18 19:05 72 14 08/25/18 19:01 72 14 144/95 H 08/25/18 18:56 80 16 151/95 H 08/25/18 18:55 79 15 08/25/18 18:53 81 15 154/96 H 08/25/18 18:51 71 12 144/107 H 08/25/18 18:50 74 13 08/25/18 18:46 74 16 144/94 H 08/25/18 18:40 79 17 153/98 H 08/25/18 18:36 78 21 08/25/18 18:35 69 22 144/95 H 08/25/18 18:34 37.5 C 79 88 21 147/102 H 147/102 H BP Pulse Ox 08/26/18 03:10 97 08/25/18 23:25 96 08/25/18 22:36 96 08/25/18 21:09 122/82 96 08/25/18 20:08 97 08/25/18 19:59 97 08/25/18 19:41 95 08/25/18 19:40 94 08/25/18 19:37 08/25/18 19:36 95 08/25/18 19:35 96 08/25/18 19:32 94 08/25/18 19:31 93 08/25/18 19:27 94 08/25/18 19:25 94 08/25/18 19:23 95 08/25/18 19:20 95 08/25/18 19:16 93 08/25/18 19:12 95 08/25/18 19:11 95 08/25/18 19:10 97 08/25/18 19:06 99 08/25/18 19:05 100 08/25/18 19:01 97 08/25/18 18:56 99 08/25/18 18:55 100 08/25/18 18:53 100 08/25/18 18:51 100 08/25/18 18:50 100 08/25/18 18:46 100 08/25/18 18:40 100 08/25/18 18:36 100 08/25/18 18:35 100 08/25/18 18:34 100
[2018-08-26 07:01] LABS: Basophils # (auto) 0.01 K/uL (0-0.2); Basophils % (auto) 0.1 %; Hematocrit (blood only) 39.2 % (37-47); Hemoglobin 13.3 g/dL (12.0-16.0); Immature Granulocytes # (auto) 0.05 K/uL (0.00-0.02); Immature Granulocytes % (auto) 0.4 %; Lymphocytes # (auto) 0.98 K/uL (1.2-3.4); Lymphocytes % (auto) 7.6 %; Mean Corpuscular Hgb Conc 33.9 g/dL (32-36); Mean Corpuscular Volume 89.9 fL (80-100); Mean Platelet Volume 10.8 fL (7.4-10.4); Monocytes # (auto) 0.52 K/uL (0.11-0.59); Monocytes % (auto) 4.1 %; Neutrophils # (auto) 11.27 K/uL (1.4-6.5); Neutrophils % (auto) 87.8 %; Platelet Count 244 K/uL (130-400); RDW Coefficient of Variation 12.6 % (11.5-14.5); RDW Standard Deviation 41.4 fL (36.4-46.3); Red Blood Count 4.36 M/uL (4.2-5.4); White Blood Count 12.83 K/uL (4.8-10.8)
[2018-08-26 07:44] LABS: Alanine Aminotransferase 26 U/L (12-78); Albumin Level 3.1 gm/dl (3.4-5.0); Aspartate Aminotransferase 22 U/L (15-37); BUN Creatinine Ratio 7.1 (10-20); Bilirubin Direct < 0.1 mg/dl (0-0.2); Blood Urea Nitrogen 8 mg/dl (7-18); Calcium 8.2 mg/dl (8.5-10.1); Carbon Dioxide 22 mmol/L (21-32); Chloride 110 mmol/L (98-107); Creatinine Clr Calc Pharmacy 77.2 ml/min; Est GFR (African American) 77.9; Est GFR (Non-African American) 67.2; Glucose 169 mg/dl (70-99); Potassium 3.8 mmol/L (3.5-5.1); Sodium 139 mmol/L (136-145)
[2018-08-26 07:46] LABS: Albumin Globulin Ratio 0.9 (0.9-2); Alkaline Phosphatase 88 U/L (45-117); Bilirubin,Total 0.4 mg/dl (0.2-1); Globulin 3.5 gm/dl (2.5-4.0); Phosphorus 2.3 mg/dl (2.5-4.9); Total Protein 6.6 gm/dl (6.4-8.2)
[2018-08-26] MEDS: HYDROCODONE/ACETAMOPHEN 5/325MG TAB PO PRN (10:39)
--- NOTE | 2018-08-28 12:25 | Discharge Summary ---
PRINCIPAL DIAGNOSIS: Acute cholecystitis. PROCEDURES: The patient underwent laparoscopic cholecystectomy. HISTORY OF PRESENT ILLNESS: The patient is a 33-year-old female who has been having upper abdominal pain, who was scheduled for elective gallbladder surgery, but experienced severe pain with nausea and presenting to the Emergency Room on 08/25/2018. She was taken to the operating room on 08/25/2018 where she underwent laparoscopic cholecystectomy, which she tolerated very well. She did have some adhesions to the gallbladder consistent with chronic cholecystitis. She did have edema of the gallbladder. She did well, progressing and was felt stable for discharge on 08/26/2018 to be followed in surgical office within 1-2 weeks.
== END 2018-08-26 10:58 | disposition home or self-care (01) ==
LOC: ED 12:20 → ASU 17:01 → 3N 17:01